=== PATIENT | male | born 1960 | race Caucasian/White ===

== ENCOUNTER 2019-11-18 18:38 | Emergency (ER) | payer OTHER ==
[~2019-11-18] VITALS: Ht 188 cm; Wt 105.0 kg
[2019-11-18] MEDS ORDERED: IV NORMAL SALINE 1,000ML 1,000 ML IV SCH (19:12)
[2019-11-18] MEDS ORDERED: IV NORMAL SALINE 1,000ML 1,000 ML IV ONE (19:15)
--- NOTE | 2019-11-18 19:16 | PHYS DOC ---
Past History Past Medical History: High Cholesterol Smoking: Non-smoker Adult General Chief Complaint Chief Complaint: BLOOD SUGAR PROBLEM HPI HPI Patient is a 59-year-old male who presents to the emergency department for evaluation. He states that for the past several weeks he has been having polyuria and polydipsia, although he states over the past week or so that seems to have improved a little bit. He went to see his PCP few weeks ago, and had his cholesterol medicine decreased from 20 mg to 10 mg, and had some labs drawn. His blood sugar was noted to be 262 at that time. He checked his blood sugar again at home this evening and it was over 400. He presents to the emergency department for evaluation. He denies any complaints, and feels well, although he states he has had some generalized blurred vision for the past week or so. He denies any headache, chest pain, shortness of breath, his states he has not had any confusion, and the patient states he has not had any nausea, vomiting, or any pain. There are no alleviating or exacerbating factors to his symptoms. He has no known history of diabetes. Review of Systems Review of Systems Constitutional: Denies fever or chills [] Eyes: Denies redness, or eye pain [] HENT: Denies nasal congestion or sore throat [] Respiratory: Denies cough or shortness of breath [] Cardiovascular: No additional information not addressed in HPI [] GI: Denies abdominal pain, nausea, vomiting, bloody stools or diarrhea [] : Denies dysuria or hematuria [] Musculoskeletal: Denies back pain or joint pain [] Integument: Denies rash or skin lesions [] Neurologic: Denies headache, focal weakness or sensory changes [] Endocrine: Reports polyuria and polydipsia [] All other systems were reviewed and found to be within normal limits, except as documented in this note. Physical Exam Physical Exam PHYSICAL EXAM: CONSTITUTIONAL: Well developed, well nourished HEAD: normocephalic, atraumatic EENT: PERRL, EOMI. Conjunctivae normal color, sclerae non-icteric; moist mucous membranes. NECK: Supple, non-tender; no meningismus. LUNGS: Lungs CTA, breathing even and unlabored. Normal air movement. HEART: Regular rate and rhythm, no murmur CHEST: No deformity; non-tender ABDOMEN: The abdomen is soft, and non-tender, no masses or bruits. EXTREM: Normal ROM; no deformity, no calf tenderness. Normal pulses palpable in all extremities. There is no pedal edema. SKIN: No rash; no diaphoresis NEURO: Alert; normal speech and cognition; CN's grossly intact; strength grossly intact without focal deficit. BACK: No CVA TTP. Current Patient Data Lab Results Laboratory Tests Test 11/18/19 19:35 11/18/19 19:56 White Blood Count 8.5 x10^3/uL Red Blood Count 5.03 x10^6/uL Hemoglobin 15.5 g/dL Hematocrit 44.2 % Mean Corpuscular Volume 88 fL Mean Corpuscular Hemoglobin 31 pg Mean Corpuscular Hemoglobin Concent 35 g/dL Red Cell Distribution Width 12.6 % Platelet Count 241 x10^3/uL Neutrophils (%) (Auto) 55 % Lymphocytes (%) (Auto) 33 % Monocytes (%) (Auto) 10 % Eosinophils (%) (Auto) 1 % Basophils (%) (Auto) 0 % Neutrophils # (Auto) 4.7 x10^3uL Lymphocytes # (Auto) 2.9 x10^3/uL Monocytes # (Auto) 0.9 x10^3/uL Eosinophils # (Auto) 0.1 x10^3/uL Basophils # (Auto) 0.0 x10^3/uL Sodium Level 137 mmol/L Potassium Level 3.9 mmol/L Chloride Level 100 mmol/L Carbon Dioxide Level 26 mmol/L Anion Gap 11 Blood Urea Nitrogen 15 mg/dL Creatinine 1.0 mg/dL Estimated GFR (Cockcroft-Gault) 76.2 BUN/Creatinine Ratio 15 Glucose Level 344 mg/dL Calcium Level 8.7 mg/dL Total Bilirubin 0.4 mg/dL Aspartate Amino Transf (AST/SGOT) 22 U/L Alanine Aminotransferase (ALT/SGPT) 47 U/L Alkaline Phosphatase 92 U/L Total Protein 7.3 g/dL Albumin 4.0 g/dL Albumin/Globulin Ratio 1.2 Acetone Level Neg Urine Collection Type Unknown Urine Color Yellow Urine Clarity Clear Urine pH 5.5 Urine Specific [place] 1.025 Urine Protein Neg Urine Glucose (UA) >=1000 mg/dL Urine Ketones (Stick) Trace mg/dL Urine Blood Trace Urine Nitrite Neg Urine Bilirubin Neg Urine Urobilinogen Dipstick 0.2 mg/dL Urine Leukocyte Esterase Neg Urine RBC 0 /HPF Urine WBC 0 /HPF Urine Squamous Epithelial Cells Occ /LPF Urine Bacteria 0 /HPF Current Medications Medications (Trade) Dose Ordered Sig/Karely Route PRN Reason Start Time Stop Time Status Last Admin Dose Admin Sodium Chloride 1,000 ml @ 1,000 mls/hr Q1H IV 11/18/19 19:12 11/18/19 20:11 DC 11/18/19 20:04 Sodium Chloride 1,000 ml @ 1,000 mls/hr 1X ONCE IV 11/18/19 19:15 11/18/19 20:14 DC 11/18/19 20:04 EKG EKG [] Radiology/Procedures Radiology/Procedures [] Course & Med Decision Making Course & Med Decision Making Pertinent Labs and Imaging studies reviewed. (See chart for details) []Patient remains stable. I discussed test results, the need for close follow- up, and return precautions. Also discussed importance of close outpatient follow-up for further ophthalmological evaluation. Dragon Disclaimer Dragon Disclaimer This electronic medical record was generated, in whole or in part, using a voice recognition dictation system. Departure Departure: Impression: Primary Impression: Hyperglycemia Disposition: HOME, SELF-CARE Condition: STABLE Referrals: FANTA RUIZ MD (PCP) Patient Instructions: Diabetes Meal Planning Guide, Diabetes, Keeping Your Heart and Blood Vessels Healthy, Diets for Diabetes, Food Labeling, How to Avoid Diabetes Problems, Type 2 Diabetes Mellitus, Adult Scripts Metformin Hcl (METFORMIN HCL) 500 Mg Tablet 1 TAB PO BID for -, #60 TAB 1 Refill Prov: YOVANY NIETO MD 11/18/19 YOVANY NIETO MD Nov 18, 2019 19:15
[2019-11-18 19:52] LABS: BASO % 0 % (0-3); EOS # 0.1 x10^3/uL (0.0-0.7); EOS % 1 % (0-3); HEMATOCRIT 44.2 % (39.0-53.0); HEMOGLOBIN 15.5 g/dL (13.0-17.5); LYMPH # 2.9 x10^3/uL (1.0-4.8); LYMPH % 33 % (24-48); MEAN CORPUSCULAR HEMOGLOBIN 31 pg (25-35); MEAN CORPUSCULAR HGB CONC 35 g/dL (31-37); MEAN CORPUSCULAR VOLUME 88 fL (79-100); MONO # 0.9 x10^3/uL (0.0-1.1); MONO % 10 % (0-9); NEUT # 4.7 x10^3uL (1.8-7.7); NEUT % 55 % (31-73); PLATELET COUNT 241 x10^3/uL (140-400); RED BLOOD COUNT 5.03 x10^6/uL (4.30-5.70); RED CELL DISTRIBUTION WIDTH 12.6 % (11.5-14.5); WHITE BLOOD COUNT 8.5 x10^3/uL (4.0-11.0)
[2019-11-18 20:01] LABS: CALCIUM 8.7 mg/dL (8.5-10.1); GFR 76.2; POTASSIUM 3.9 mmol/L (3.5-5.1)
[2019-11-18 20:07] LABS: ALBUMIN/GLOBULIN RATIO 1.2 (1.0-1.7); TOTAL BILIRUBIN 0.4 mg/dL (0.2-1.0); TOTAL PROTEIN 7.3 g/dL (6.4-8.2)
[2019-11-18 20:40] VITALS: BP 116/71
[2019-11-18 20:46] LABS: BILIRUBIN,URINE NEG (NEG); CLARITY,URINE CLEAR; COLOR,URINE YELLOW; GLUCOSE,URINE >=1000 mg/dL (NEG)
[2019-11-18 20:47] LABS: BACTERIA,URINE 0 /HPF (0-FEW); NITRITE,URINE NEG (NEG); RBC,URINE 0 /HPF (0-2); SQUAMOUS EPITHELIAL CELL,UR OCC /LPF; UROBILINOGEN,URINE 0.2 mg/dL (0.2 mg/dL); WBC,URINE 0 /HPF (0-4)
[2019-11-18] MEDS ORDERED: METF500T16 PO (21:00)
== END 2019-11-18 22:00 | disposition home or self-care (01) ==
LOC: ER 18:38
DX: R73.9 Hyperglycemia, unspecified (principal); E78.00 Pure hypercholesterolemia, unspecified
CPT/HCPCS: 36415; 80053; 81001; 82010; 82947; 85025; 99283-25; J7030

== ENCOUNTER → 2020-03-31 | Outpatient (CLI) | payer OTHER ==
[~2020-03-31] MED LIST: METF500T16 PO
--- NOTE | 2020-03-31 11:54 | RAD ---
Ultrasound of the right neck 03/31/2020 CLINICAL HISTORY: Right neck lump for 3 months. TECHNIQUE: A real-time ultrasound examination of the right neck in the area where the patient feels a palpable abnormality was performed. Multiple images were obtained. FINDINGS: An oval-shaped hypoechoic mass is seen within the right neck in the area where the patient feels a palpable abnormality. This measures 2.9 cm in greatest diameter. This appears to have calcifications within it. Its ultrasound appearance is nonspecific. It is concerning for a neoplastic process. An adjacent hypoechoic mass is seen which measures 1.1 cm in greatest diameter which likely represents a lymph node. Further evaluation with a CT scan of the neck with contrast is recommended. IMPRESSION: 2.9 cm hypoechoic mass is seen within the right neck which corresponds to the patient's palpable abnormality. Its ultrasound appearance is concerning for a neoplastic process. Further evaluation with a CT scan of the neck with contrast is recommended. Electronically signed by: Bryan Orozco MD (03/31/2020 11:51 AM) [id number]
== END | disposition home or self-care (01) ==
LOC: US 09:21
PROVIDERS: ATTEND Family Medicine
DX: R22.1 Localized swelling, mass and lump, neck (principal)
CPT/HCPCS: 76536

== ENCOUNTER → 2020-04-11 | Outpatient (CLI) | payer OTHER ==
[~2020-04-11] MED LIST changes: +IOHEXOL 300 MG/ML 75 ML VIAL. IV ONE
[2020-04-11 08:15] LABS: CREATININE 1.1 mg/dL (0.7-1.3); GFR 68.1
--- NOTE | 2020-04-11 08:58 | RAD ---
CT SOFT TISSUE NECK W/CONTRAST History:Reason: MASS R SIDE OF NECK- marked area of interest w bb Technique: CT imaging was performed of the neck soft tissues with intravenous contrast. Coronal and sagittal reconstructions were performed. Exposure: One or more of the following individualized dose reduction techniques were utilized for this examination: 1. Automated exposure control 2. Adjustment of the mA and/or kV according to patient size 3. Use of iterative reconstruction technique. Comparison: Ultrasound March 31, 2020 Findings: Heterogeneous enlarged right level 2 lymph node measures 2.4 x 2.0 cm with infiltration of the adjacent fat corresponding with patient's palpable abnormality. Mass effect on the posterior aspect of the submandibular gland. Small additional bilateral deep cervical chain lymph nodes. Enlarged right lingual tonsils with right and posterior hypopharyngeal wall thickening (series 2 image 36). Normal appearance of the bilateral submandibular and parotid glands. Unremarkable thyroid gland. Imaged lung apices are unremarkable. Imaged paranasal sinuses and mastoid air cells are clear. Imaged orbits and intracranial contents are unremarkable. Impression: 1. Heterogeneous enhancing right level 2 mass concerning for metastatic lymphadenopathy. Recommend biopsy. 2. Right posterior hypopharyngeal wall thickening with asymmetric appearance of the lingual tonsils. Recommend correlation for underlying mass and potential primary site of malignancy. Electronically signed by: Chepe Rios DO (04/11/2020 8:55 AM) [id number]
== END | disposition home or self-care (01) ==
LOC: CT 07:42
PROVIDERS: ATTEND Physician Assistant
DX: C91.90 Lymphoid leukemia, unspecified not having achieved remission (principal); R59.1 Generalized enlarged lymph nodes
CPT/HCPCS: 36415; 70491; 82565; 84520; Q9967